=== PATIENT | female | born 1975 | race Caucasian/White ===

== ENCOUNTER 2017-10-05 16:12 | Emergency (ER) | payer OTHER ==
[~2017-10-05] VITALS: Ht 182.9 cm; Wt 124.5 kg
[~2017-10-05 16:12] MED LIST: AIRBORNE TABLE1 EAC1 PO; ALBUTEROL17 GM IH; ATIVAN0.5 MG PO; BENADRYL A12.5 MG/5 PO; CARAFATE1 GM PO; CHLORASEPTIC177 ML MM; CYCLOBENZAPRINE10 MG; ERGOCALCIF50000 UNIT PO; FIORICET 50-301 EACH PO; FIORICET,ESG1 TABLET PO; FLEXERIL10 MG PO; HYDROCHLOROTHIAZIDE; HYDROCODON-ACE1 EAC7 PO; HYDROMET SYRUP480 ML PO; KLONOPIN0.5 M1 PO; KlonoPIN PO; LISINOPRIL5 MG; NEXIUM40 MG PO; NYQUIL D COLD295 ML PO; PERCOCET 5-3251 EACH PO; PERCOCET 5/31 TABLET PO; PREDNISONE20 MG PO; PROAIR HFA8.5 GM IH; PROPRANOLOL HCL60 MG PO; PROVENTIL,2.5 MG/3 M IH; REGLAN10 MG PO; ROXICODONE5 MG PO; TESSALON PERLE100 MG PO; TUMS500 MG PO; TYLENOL EXTRA500 MG PO; VITAMIN B-12500 MC5 SL; ZANTAC150 MG PO; ZITHROMAX Z-PA250 MG PO; ZOFRAN ODT4 MG PO; ZOFRAN4 MG PO
[2017-10-05 17:15] LABS: HEMATOCRIT 40.2 % (36.0-46.0); MCH 27.9 PG (29.0-34.0); MCHC 32.8 G/DL (30.0-36.0); MEAN PLAT.VOLUME 11.9 uM^3 (9.5-12.4); PLATELET COUNT 171 K/uL (156-360); RBC DIS.WIDTH-CV 12.5 % (11.8-14.6); RBC DIS.WIDTH-SD 38.5 % (39-53); RED BLOOD COUNT 4.73 M/uL (3.80-5.20); WHITE BLOOD COUNT 6.9 K/uL (4.1-10.2)
[2017-10-05 17:42] LABS: QUANTITATIVE HCG < 4.0 MIU/ML
[2017-10-05 18:08] LABS: ADD MIUA? YES; BILIRUBIN SMALL; BLOOD LARGE; COLOR BLOODY ((YELLOW)); GLUCOSE (STRIP) NEGATIVE; KETONES NEGATIVE; LEUKOCYTES MODERATE; NITRITE NEGATIVE; PROTEIN (STRIP) 30; SPECIFIC GRAVITY 1.011 (1.000-1.030); UROBILINOGEN 0.2 MG/DL (0.2-1.0)
[2017-10-05 18:27] LABS: RED BLOOD CELLS TNTC /HPF (0-5); UCUL ADDED? YES
[2017-10-05 21:53] LABS: CHLORIDE 108 mEq/L (99-109); POTASSIUM 4.5 mEq/L (3.7-5.4); SODIUM 139 mEq/L (136-147)
[2017-10-05 21:56] LABS: GLUCOSE 102 mg/dL (70-99)
[2017-10-05 21:57] LABS: ANION GAP 9 MEQ/L (2-14)
[2017-10-05 21:58] LABS: TOTAL BILIRUBIN 0.5 mg/dL (0.0-1.0)
[2017-10-05 21:59] LABS: ALKALINE PHOSPHATASE 69 IU/L (3-129); GFR ESTIMATE (CALCULATED) > 59 mL/min/
[2017-10-05 22:00] LABS: UREA NITROGEN (BUN) 7 mg/dL (9-23)
[2017-10-05] MEDS ORDERED: AYGESTIN5 MG PO (22:56)
[2017-10-05] MEDS ORDERED: TYLENOL WITH C1 EACH PO (23:38)
[2017-10-05 23:55] VITALS: BP 168/89
== END 2017-10-05 23:57 | disposition home or self-care (01) ==
LOC: EME 16:12
DX: N93.9 Abnormal uterine and vaginal bleeding, unspecified (principal); R10.9 Unspecified abdominal pain; R51 Headache; R11.0 Nausea; D25.9 Leiomyoma of uterus, unspecified; N88.8 Other specified noninflammatory disorders of cervix uteri; J45.909 Unspecified asthma, uncomplicated; Z90.49 Acquired absence of other specified parts of digestive tract
CPT/HCPCS: 76856; 80053; 81003; 84702; 85027; 87077; 87086; 99281; 99284

== ENCOUNTER 2017-11-14 05:38 | Day surgery (SDC) | payer OTHER ==
[~2017-11-14] VITALS: Ht 182.9 cm; Wt 122.5 kg
[~2017-11-14 05:38] MED LIST changes: +AYGESTIN5 MG PO; +IMODIUM A-D2 M2 PO; +TYLENOL WITH C1 EACH PO; +VALIUM2 MG PO; +VITAMIN D PO
[2017-11-14 05:54] VITALS: BP 147/93
[2017-11-14 10:50] VITALS: BP 145/70
[2017-11-14 11:39] VITALS: BP 133/85
== END 2017-11-14 12:00 | disposition home or self-care (01) ==
LOC: SDC 05:38
PROC: 0UDB8ZX Extraction of Endometrium, Via Natural or Artificial Opening Endoscopic, Diagnostic (ICD-10-PCS; principal; 2017-11-14)
DX: N92.0 Excessive and frequent menstruation with regular cycle (principal); F41.9 Anxiety disorder, unspecified; Z88.0 Allergy status to penicillin; Z87.891 Personal history of nicotine dependence
CPT/HCPCS: 84702; 85025; 88305; 93005; J0131; J0330; J1100; J1170; J2250; J2405

== ENCOUNTER 2018-06-01 22:21 | Emergency (ER) | payer OTHER ==
[~2018-06-01] VITALS: Ht 182.9 cm; Wt 126.0 kg
[2018-06-02] MEDS ORDERED: PERCOCET 5/31 TABLET PO (01:39)
[2018-06-02] MEDS ORDERED: LIORESAL10 MG PO (01:39)
[2018-06-02] MEDS ORDERED: LIDODERM 5% P1 PATCH TD (01:39)
[2018-06-02 02:04] VITALS: BP 129/53
== END 2018-06-02 02:05 | disposition home or self-care (01) ==
LOC: EME 22:21
DX: S76.011A Strain of muscle, fascia and tendon of right hip, initial encounter (principal); M54.5 Low back pain; W01.0XXA Fall on same level from slipping, tripping and stumbling without subsequent striking against object, initial encounter; M51.36 Other intervertebral disc degeneration, lumbar region; M25.78 Osteophyte, vertebrae; J45.909 Unspecified asthma, uncomplicated; Z87.891 Personal history of nicotine dependence
CPT/HCPCS: 72100; 72131; 72192; 73502; 99281; 99284